=== PATIENT | male | born 1990 | race Caucasian/White ===

== ENCOUNTER 2023-05-19 10:55 | Emergency (ER) | payer OTHER ==
[2023-05-19 11:00] VITALS: BP 130/93; PULSE 72; RESP 20; TEMP 98.7; BMI 25.7
== END 2023-05-19 12:36 | disposition home or self-care (01) ==
LOC: FER 10:55
DX: R10.9 Unspecified abdominal pain (principal); R35.0 Frequency of micturition; G89.29 Other chronic pain
CPT/HCPCS: 36415; 81003; 87086; 87491; 87591; 99283-25